=== PATIENT | male | born 1965 | race Native Hawaiian/Other Pacific Islander ===

== ENCOUNTER 2020-10-26 13:08 | Outpatient (CLI) | payer BC, OTHER | END 2020-10-26 21:37 | disposition home or self-care (01) | LOC: INF 13:08 | PROVIDERS: ATTEND Internal Medicine Endocrinology, Diabetes & Metabolism | DX: Z23 Encounter for immunization (principal) | CPT/HCPCS: 96372 ==

== ENCOUNTER 2020-11-23 10:50 | Outpatient (CLI) | payer BC, OTHER | END 2020-11-23 19:51 | disposition home or self-care (01) | LOC: INF 10:50 | PROVIDERS: ATTEND Internal Medicine Endocrinology, Diabetes & Metabolism | DX: Z23 Encounter for immunization (principal) | CPT/HCPCS: 96372 ==